=== PATIENT | male | born 1965 | race African-American/Black ===

== ENCOUNTER 2020-03-04 23:10 | Emergency (ER) | payer MEDICAID, MEDICARE, OTHER ==
[~2020-03-04] VITALS: Ht 182.9 cm; Wt 68.0 kg
--- NOTE | 2020-03-04 23:19 | NUR ---
ED Nurse Note: Patient was brought in by ambulance with complaints of decreased urination and bowel movements for the past week. Patient reports no pain. Patient reports voiding about an hour ago less than 10cc of urine. Will continue to monitor patient for impending orders.
[2020-03-04] MEDS ORDERED: LEVETIRACETAM500 MG ORAL (23:20)
[2020-03-04] MEDS ORDERED: TRIUMEQ 600-501 EACH PO (23:20)
[2020-03-04] MEDS ORDERED: PREZCOBIX 8001 EACH PO (23:20)
[2020-03-04 23:21] VITALS: BP 148/68
--- NOTE | 2020-03-04 23:23 | NUR ---
ED Nurse Note: Iv started at left hand, 20G, blood lab specimen collected and sent to lab. Urine catether placed and urine speciment collectged and sent to lab. Will continue to monitor.
[2020-03-04] MEDS ORDERED: ELIQUIS2.5 MG PO (23:29)
--- NOTE | 2020-03-04 23:33 | Emergency Room Report ---
History of Present Illness General Chief Complaint: Abdominal Pain Source: Patient Present Illness HPI Patient is a 54-year-old male who presents after increased abdominal distention and decreased urine output. He reports having significant urinary hesitancy. He is normally able to urinate on his own without any catheterization. 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 Has history of inability to ambulate for many years due to CVA. Reports having HIV and being compliant with medications and states his most recent viral loads and cell count to be normal. He states he has not had labs in some time. Denies any fever. Denies any vomiting. Reports having a diminished bowel movements. States he takes Keppra for seizures. Allergies: Coded Allergies: DIVALPROEX SODIUM (Verified Allergy, Unknown, Hives, 03/05/20) COVID-19 Screening Contact w/high risk pt: No Recent Travel to affected area: No Experienced COVID-19 symptoms?: No COVID-19 Testing performed APPLICATION INTEGRATION ENGINEER: No Nursing Documentation-PMH Past Medical History: No History, Except For Hx Cerebrovascular Accident: Yes Hx Seizures: Yes Review of Systems All Other Systems: negative except mentioned in HPI Physical Exam Vital Signs Date Time Temp Pulse Resp B/P (MAP) Pulse Ox O2 Delivery O2 Flow Rate FiO2 03/04/20 23:11 99.1 94 18 148/68 (94) 96 Room Air Sp02 EP Interpretation: reviewed, normal General Appearance: normal inspection, well appearing, no apparent distress, alert, GCS 15, non-toxic Head: atraumatic ENT: normal ENT inspection, hearing grossly normal, normal voice Neck: normal inspection, full range of motion, supple, no bony tend Respiratory: normal inspection, lungs clear, normal breath sounds, no respiratory distress, no retraction, no wheezing Cardiovascular #1: regular rate, rhythm, no edema Gastrointestinal: normal inspection, normal bowel sounds, non tender, soft, no guarding, no hernia Genitourinary: no CVA tenderness Musculoskeletal: normal inspection, back normal Neurologic: alert, roller printing supervisor III-XII nml as tested, oriented x3, responsive Psychiatric: normal inspection, judgement/insight normal, mood/affect normal Medical Decision Making Diagnostic Impression: Primary Impression: Cystitis Additional Impression: Headache ER Course Patient presented for headache and abdominal pain. Differential diagnosis include was not limited to urinary tract infection, migraine headache, among others. Because of complexity of patient's case laboratory tests and imaging studies were ordered.CT imaging was ordered to evaluate for possible bowel obstruction. CT imaging read by radiology showed some evidence of cystitis. There is no evidence of bowel obstruction. Patient's laboratory testing did show evidence of urinary infection. Patient given prescription for oral antibiotics. Appears stable for outpatient follow-up. The patient is advised to follow up with primary care doctor in 1-2 days. Patient is advised to return if any worsening condition or if any changes in status that are concerning. This report is dictated with [employer] meat hostess software which may occasionally lead to discrepancies related to use of this software. Labs Test 03/04/20 00:00 White Blood Count 8.6 K/UL (4.8-10.8) Red Blood Count 4.32 M/UL (4.70-6.10) Hemoglobin 14.4 G/DL (14.2-18.0) Hematocrit 42.0 % (42.0-52.0) Mean Corpuscular Volume 97 FL (80-99) Mean Corpuscular Hemoglobin 33.3 PG (27.0-31.0) Mean Corpuscular Hemoglobin Concent 34.2 G/DL (32.0-36.0) Red Cell Distribution Width 11.9 % (11.6-14.8) Platelet Count 214 K/UL (150-450) Mean Platelet Volume 4.7 FL (6.5-10.1) Neutrophils (%) (Auto) 63.6 % (45.0-75.0) Lymphocytes (%) (Auto) 23.1 % (20.0-45.0) Monocytes (%) (Auto) 11.6 % (1.0-10.0) Eosinophils (%) (Auto) 0.9 % (0.0-3.0) Basophils (%) (Auto) 0.8 % (0.0-2.0) Urine Color Yellow Urine Appearance Turbid Urine pH 5 (4.5-8.0) Urine Specific [place] 1.015 (1.005-1.035) Urine Protein 4+ (NEGATIVE) Urine Glucose (UA) Negative (NEGATIVE) Urine Ketones Negative (NEGATIVE) Urine Blood 5+ (NEGATIVE) Urine Nitrite Negative (NEGATIVE) Urine Bilirubin Negative (NEGATIVE) Urine Urobilinogen 4 MG/DL (0.0-1.0) Urine Leukocyte Esterase 3+ (NEGATIVE) Urine RBC Tntc /HPF (0 - 0) Urine WBC Tntc /HPF (0 - 0) Urine Squamous Epithelial Cells None /LPF (NONE/OCC) Urine Bacteria Many /HPF (NONE) Sodium Level 141 MMOL/L (136-145) Potassium Level 3.9 MMOL/L (3.5-5.1) Chloride Level 105 MMOL/L (98-107) Carbon Dioxide Level 29 MMOL/L (21-32) Anion Gap 7 mmol/L (5-15) Blood Urea Nitrogen 10 mg/dL (7-18) Creatinine 1.4 MG/DL (0.55-1.30) Estimat Glomerular Filtration Rate > 60 mL/min (>60) Glucose Level 130 MG/DL (74-106) Calcium Level 9.1 MG/DL (8.5-10.1) Total Bilirubin 0.7 MG/DL (0.2-1.0) Aspartate Amino Transf (AST/SGOT) 29 U/L (15-37) Alanine Aminotransferase (ALT/SGPT) 35 U/L (12-78) Alkaline Phosphatase 92 U/L (46-116) Total Protein 9.0 G/DL (6.4-8.2) Albumin 3.1 G/DL (3.4-5.0) Globulin 5.9 g/dL Albumin/Globulin Ratio 0.5 (1.0-2.7) Lipase 191 U/L (73-393) Last Vital Signs Date Time Temp Pulse Resp B/P (MAP) Pulse Ox O2 Delivery O2 Flow Rate FiO2 03/04/20 23:11 99.1 94 18 148/68 (94) 96 Room Air Status: improved Disposition: HOME, SELF-CARE Condition: Stable Scripts Cephalexin* (KEFLEX*) 500 Mg Capsule 500 MG ORAL EVERY 6 HOURS, #28 CAP Prov: Lazaro Marcano MD 03/05/20 Lazaro Marcano MD March 04, 2020 23:33
[2020-03-05] VITALS: BP 125/82
[2020-03-05 00:18] LABS: BASOPHILS % (AUTO) 0.8 % (0.0-2.0); BILIRUBIN, URINE NEGATIVE (NEGATIVE); EOSINOPHILS % (AUTO) 0.9 % (0.0-3.0); GLUCOSE, URINE (UA) NEGATIVE (NEGATIVE); HEMOGLOBIN 14.4 G/DL (14.2-18.0); KETONES,URINE NEGATIVE (NEGATIVE); LEUKOCYTE ESTERASE ,URINE 3+ (NEGATIVE); LYMPHOCYTES % (AUTO) 23.1 % (20.0-45.0); MEAN CORPUSCULAR VOLUME 97 FL (80-99); MONOCYTES % (AUTO) 11.6 % (1.0-10.0); NEUTROPHILS % (AUTO) 63.6 % (45.0-75.0); NITRITE,URINE NEGATIVE (NEGATIVE); PH,URINE 5 (4.5-8.0); PLATELET COUNT 214 K/UL (150-450); PROTEIN,URINE 4+ (NEGATIVE); RED BLOOD COUNT 4.32 M/UL (4.70-6.10); RED CELL DISTRIBUTION WIDTH 11.9 % (11.6-14.8); UROBILINOGEN,URINE 4 MG/DL (0.0-1.0); WHITE BLOOD COUNT 8.6 K/UL (4.8-10.8)
[2020-03-05 00:26] LABS: ANION GAP 7 mmol/L (5-15); BLOOD UREA NITROGEN 10 mg/dL (7-18); CALCIUM 9.1 MG/DL (8.5-10.1); CARBON DIOXIDE 29 MMOL/L (21-32); CHLORIDE 105 MMOL/L (98-107); CREATININE 1.4 MG/DL (0.55-1.30); POTASSIUM 3.9 MMOL/L (3.5-5.1); SODIUM 141 MMOL/L (136-145)
[2020-03-05 00:30] LABS: APPEARANCE,URINE TURBID; COLOR,URINE YELLOW
[2020-03-05 00:31] LABS: ALANINE AMINOTRANSFERASE 35 U/L (12-78); ALBUMIN 3.1 G/DL (3.4-5.0); ALBUMIN/GLOBULIN RATIO 0.5 (1.0-2.7); ALKALINE PHOSPHATASE 92 U/L (46-116); ASPARTATE AMINO TRANSFERASE 29 U/L (15-37); BILIRUBIN,TOTAL 0.7 MG/DL (0.2-1.0)
--- NOTE | 2020-03-05 00:36 | NUR ---
ED Nurse Note: Patient called home to communicate plan of care to home health care social worker.
[2020-03-05] MEDS ORDERED: cefTRIAXone 1 GM in NS 55 ML IVPB ONE (00:45)
[2020-03-05] MEDS ORDERED: Omnipaque-300 100ml vial INJ PRN (00:45)
[2020-03-05 01:00] VITALS: BP 125/82
--- NOTE | 2020-03-05 01:00 | NUR ---
ED Nurse Note: Patient went down for CT of the abdomen accompanied by cnc technician.
--- NOTE | 2020-03-05 01:30 | NUR ---
ED Nurse Note: Patient provided with more warm blankets.
--- NOTE | 2020-03-05 01:58 | Diagnostic Imaging Report ---
ADDENDUM - Added by Lance Vega M.D. on 03/05/2020 2:27 AM (-07:00) CTDI 11.6 DLP 799.1 EXAM: CT Abdomen and Pelvis With Intravenous Contrast CLINICAL HISTORY: PAIN TECHNIQUE: Axial computed tomography images of the abdomen and pelvis with intravenous contrast. One or more of the following dose reduction techniques were used: automated exposure control, adjustment of the mA and/or kV according to patient size, use of iterative reconstruction technique. COMPARISON: CT abdomen pelvis 07/15/2006 FINDINGS: Lung bases: Unremarkable. No mass. No consolidation. ABDOMEN: Liver: Unremarkable. No mass. Gallbladder and bile ducts: Unremarkable. No calcified stones. No ductal dilation. Pancreas: Unremarkable. No mass. No ductal dilation. Spleen: Unremarkable. No splenomegaly. Adrenals: Unremarkable. No mass. Kidneys and ureters: No obstructive uropathy. Stomach and bowel: See below. PELVIS: Appendix: No appendicitis, colitis or diverticulitis or bowel obstruction. Bladder: Prominent thickening of the bladder wall with adjacent inflammation is concerning for cystitis. Correlate with urinalysis. Reproductive: Unremarkable as visualized. ABDOMEN and PELVIS: Intraperitoneal space: No free air or free fluid or any other acute disease. Bones/joints: No acute fracture. No dislocation. Soft tissues: Unremarkable. Vasculature: IVC filter in place. Pancreas and gallbladder are unremarkable. No abdominal aortic aneurysm. Lymph nodes: Unremarkable. No enlarged lymph nodes. IMPRESSION: Findings are concerning for cystitis in the appropriate clinical setting. Correlate with urinalysis. No definite pyelonephritis or abscess.
[2020-03-05 02:02] VITALS: BP 134/88
[2020-03-05] MEDS ORDERED: CEPHALEXIN500 MG ORAL (02:10)
--- NOTE | 2020-03-05 02:34 | NUR ---
ED Nurse Note: Assisted patient with eating a sandwich and drinking juice. Perineal care performed due to incontinence related to infection. Will continue to monitor.
--- NOTE | 2020-03-05 03:09 | NUR ---
ER DISCHARGE NOTE: Patient cleared for discharge by ERMD. Patient IV removed without complications and intact. Patient's ID band removed. Patient verbalized understanding of dischage instructions. Patient is A&Ox4, non-ambulatory for 17 years. Patient is being discharged to home in the care of his caregiver, Mg, who is awaiting his arrival. Patient departed with all belongings accompanied by PLACIDO Pineda, [address].
[2020-03-05 03:13] VITALS: BP 134/88
== END 2020-03-05 03:13 | disposition home or self-care (01) ==
LOC: EDBD 23:10 → EMR 23:23
DX: N30.90 Cystitis, unspecified without hematuria (principal); R51 Headache; R39.11 Hesitancy of micturition; Z86.73 Personal history of transient ischemic attack (TIA), and cerebral infarction without residual deficits; G40.909 Epilepsy, unspecified, not intractable, without status epilepticus; B20 Human immunodeficiency virus [HIV] disease; Z79.899 Other long term (current) drug therapy
CPT/HCPCS: 36415; 51702; 74177; 80053; 81003; 83690; 85025; 87086; 87181; 96365; 99284; J0696; J7040; Q9967